=== PATIENT | female | born 1985 | race Caucasian/White ===

== ENCOUNTER 2024-11-17 14:21 | Emergency (ER) | payer OTHER, SELFPAY ==
[2024-11-17 14:57] VITALS: BP 150/90; PULSE 98; RESP 18; TEMP 36.6; O2SAT 97; BMI 17.9
--- NOTE | 2024-11-17 14:58 | ED_ITS ---
HPI - Psych General Chief Complaint: Anxiety Stated Complaint: Detox, anxiety Time Seen by Provider: 11/17/24 18:38 Source: patient Limitations: no limitations History of Present Illness ED Provider: Carmen Santana PA-C HPI Narrative: 39-year-old female with a history of polysubstance abuse presents to the ED requesting detox. Patient states she has been using more frequently secondary to increased life stressors involving a toxic relationship. Patient last use prior to arrival. She has been using heroin, cocaine and fentanyl. Patient denies use of alcohol, no SI or HI. Patient also complains of redness over some of the injection sites over her bilateral upper extremities. Denies fevers or active purulence from any of the sites. Related Data Previous Rx's ?Medication ?Instructions ?Recorded doxycycline hyclate 100 mg capsule 100 mg PO BID #14 caps 11/17/24 Allergies Allergy/AdvReac Type Severity Reaction Status Date / Time No Known Allergies Allergy Verified 11/17/24 15:02 Review of Systems 2 Review of Systems: Yes all other systems are reviewed and are negative Constitutional: Constitutional: Denies fatigue and Denies fever(s) Cardiovascular: Cardiovascular: Denies chest pain and Denies dyspnea Respiratory: Respiratory: Denies dyspnea Gastrointestinal: Gastrointestinal: Denies abdominal pain, Denies nausea and Denies vomiting Musculoskeletal: Musculoskeletal: Denies arthralgias and Denies joint swelling Integumentary/Breasts: Skin/Breast: Reports new lesions, Reports erythema, Reports sores and Reports wounds Endocrine: Endocrine: Denies fatigue PMFSH Past Medical History Attestation statement: The following information was validated with the patient. Social History Social History Advance Directives: No Advance Directives Information Provided: No Physical Exam 2 Vital Signs: Vital Signs: Last Vital Signs Temp 98.0 F 11/17/24 19:55 Pulse 85 11/17/24 19:55 Resp 16 11/17/24 19:55 BP 108/65 11/17/24 19:55 Pulse Ox 96 11/17/24 19:55 O2 Del Method Room Air 11/17/24 19:55 BMI result Body Mass Index 17.9 Const: Other: Awake, cachectic, appears older than stated age Orientation/consciousness: patient oriented x3 Resp: Effort & Inspection: normal respiratory effort Cardio: Other: Normal peripheral perfusion Skin: Other: Warm dry no rash overall. Patient has numerous track king over bilateral upper extremities, some regions scabbed over, some of the overlying erythema, none with the active purulent drainage or central fluctuance to suggest mini abscesses Neuro: General: patient oriented x3, gait normal, no focal motor deficits and CN's II-XI intact bilaterally Psych: Other: Cooperative, appears depressed is tearful Course Course Course Narrative: This is an RME: Additional HPI, ROS, PE not included below will be deferred to primary provider. RME assessment and note performed by: Cassandra Scott PA-C This is a [id number]-female, with a PMHx of endocarditis, CKD, and respiratory failure (hospitalized [facility] 2020), who presents to the ER with complaints of increased anxiety, and seeking detox. Reports that she is using fentanyl, heroin and cocaine daily. Last used this AM. Uses 3 bundles of heroin daily and using cocaine every 5 minutes . Denies etoh use. No SI/HI. Reporting some body aches. No CP or SOB. Bilateral biceps are indurated and warm Plan: Labs, addiction med, EKG Medications Administered Discontinued Medications Generic Name Dose Route Start Last Admin Trade Name Laureano PRN Reason Stop Dose Admin Doxycycline Monohydrate 100 mg 11/17/24 19:05 11/17/24 19:39 Doxycycline Monohydrate 100 Mg Capsule PO 11/17/24 19:06 100 mg ONCE ONE Administration Methadone HCl 130 mg 11/17/24 19:23 11/17/24 19:37 Methadone Hcl 20 Mg/2 Ml Oral.Conc PO 11/17/24 19:24 130 mg ONCE ONE Administration Medical Decision Making Medical Decision Making [facility] Narrative: 39-year-old female with a history of polysubstance abuse presents to the ED requesting detox. Patient states she has been using more frequently secondary to increased life stressors involving a toxic relationship. Patient last use prior to arrival. She has been using heroin, cocaine and fentanyl. Patient denies use of alcohol, no SI or HI. Patient also complains of redness over some of the injection sites over her bilateral upper extremities. Denies fevers or active purulence from any of the sites. Problem: Polysubstance abuse, IV drug abuse History: Per patient I have considered the following differential diagnoses: SI, HI, decompensated psychiatric illness, drug/alcohol intoxication Plan: The assistant women's rowing coach saw the patient, they have a bed for her in [place], we are able to discharge her. In regard to her upper extremities, we will treat her for early cellulitis. We will place her on doxycycline and send with a paper prescription. I have independently reviewed the following tests: Labs: No leukocytosis, not anemic, no electrolyte abnormality, inflammatory markers minimally elevated Lab Data 11/17/24 15:46 11/17/24 15:46 Labs: Lab Results 11/17/24 Range/Units 15:46 WBC 9.9 (4.8-10.8) X10*3/uL RBC 5.29 (4.20-5.50) X10*6/uL Hgb 11.9 L (12.0-16.0) g/dl Hct 38.0 (37.0-47.0) % MCV 71.8 L (80.0-98.0) fL MCH 22.5 L (27.0-33.0) pg MCHC 31.3 (31.0-35.0) g/dl RDW 16.9 H (11.0-16.0) % Plt Count 309 (160-400) X10*3/uL MPV 10.6 (9.4-12.3) fL Immature Gran % (Auto) 0.3 (0.0-0.4) % Neut % (Auto) 73.2 H (45-73) % Lymph % (Auto) 16.1 L (20-40) % Crosby % (Auto) 9.0 (2-11) % Eos % (Auto) 0.9 (0-4) % Baso % (Auto) 0.5 (0-2) % Lymph # (Auto) 1.6 (1.2-4.9) X10*3/uL Crosby # (Auto) 0.9 (0.1-1.2) X10*3/uL Eos # (Auto) 0.1 (0.0-0.4) X10*3/uL Baso # (Auto) 0.1 (0.0-0.2) X10*3/uL Abs Immat Gran (auto) 0.03 (0.00-0.03) X10*3/uL Absolute Neuts (auto) 7.2 (2.0-8.3) x10*3/uL Absolute Nucleated RBC 0.000 (0.0-0.012) X10*3/uL Nucleated RBC % (auto) 0.0 (0.0-0.2) /100WBC ESR 25 H (0-20) MM/HR Sodium 136 (135-145) mmol/L Potassium 4.0 (3.3-5.1) mmol/L Chloride 104 (96-108) mmol/L Carbon Dioxide 23 (22-29) mmol/L Anion Gap 13 (12-20) BUN 13 (9-16) mg/dL Creatinine 0.70 (0.5-1.4) mg/dL Estim Creat Clear Calc 95.5 Estimated GFR > 60 Random Glucose 89 (60-115) mg/dL Calcium 8.1 L (8.4-10.2) mg/dL Total Bilirubin 0.9 (0.0-1.0) mg/dL Direct Bilirubin 0.4 (0.0-0.5) mg/dL AST 33 H (5-31) U/L ALT 25 (0-31) U/L Alkaline Phosphatase 77 (39-117) U/L Troponin I High Sens < 2.7 (<3.5-17.0) ng/L C-Reactive Protein 4.21 H (< or = 0.50) mg/dL Total Protein 8.7 H (6.5-8.0) g/dL Albumin 4.0 (3.5-5.0) g/dL Beta HCG, Quant < 2 mIU/mL Discharge Plan Discharge Clinical Impression: Polysubstance abuse, Cellulitis Patient Disposition: Xfer Other Instructions: Cellulitis (ED) Additional Instructions: You are being treated for suspect early cellulitis at some of the injection sites. See home care instructions. Take the doxycycline as directed. You are being transported to a detox facility. Prescriptions: New doxycycline hyclate 100 mg capsule 100 mg PO BID Qty: 14 0RF Interventions: ED Discharge Assessment Last Done: 11/17/24 19:55 Discharge Date/Time: 11/17/24 19:57 Print Language: [place]
--- NOTE | 2024-11-17 15:04 | ECG_ITS ---
Test Reason : substance abuse Blood Pressure : */* mmHG Vent. Rate : 83 BPM Atrial Rate : 83 BPM P-R Int : 178 ms QRS Dur : 96 ms QT Int : 380 ms P-R-T Axes : 64 15 4 degrees QTcB Int : 446 ms Normal sinus rhythm Possible Left atrial enlargement Nonspecific ST and T wave abnormality Abnormal ECG No previous ECGs available Referred By: Cassandra Scott Electronically Signed By: BERNARDINO VANEGAS
[2024-11-17 15:53] LABS: MANUAL DIFF FLAG NO
[2024-11-17 15:56] LABS: Basophils Absolute Auto 0.1 X10*3/uL (0.0-0.2); Basophils Percent Auto 0.5 % (0-2); Eosinophils Absolute Auto 0.1 X10*3/uL (0.0-0.4); Eosinophils Percent Auto 0.9 % (0-4); Hemoglobin 11.9 g/dl (12.0-16.0); Imm Gran Abs Auto 0.03 X10*3/uL (0.00-0.03); Imm Gran Pct Auto 0.3 % (0.0-0.4); Lymphocytes Absolute Auto 1.6 X10*3/uL (1.2-4.9); Lymphocytes Percent Auto 16.1 % (20-40); Mean Corpuscular HGB Conc 31.3 g/dl (31.0-35.0); Mean Corpuscular Hemoglobin 22.5 pg (27.0-33.0); Mean Corpuscular Volume 71.8 fL (80.0-98.0); Mean Platelet Volume 10.6 fL (9.4-12.3); Monocytes Absolute Auto 0.9 X10*3/uL (0.1-1.2); Neutrophils Absolute Auto 7.2 x10*3/uL (2.0-8.3); Neutrophils Percent Auto 73.2 % (45-73); Platelet Count 309 X10*3/uL (160-400); Red Blood Count 5.29 X10*6/uL (4.20-5.50); Red Cell Distribution Width 16.9 % (11.0-16.0); White Blood Count 9.9 X10*3/uL (4.8-10.8)
[2024-11-17 16:08] LABS: Alanine Aminotransferase 25 U/L (0-31); Alkaline Phosphatase 77 U/L (39-117); Anion Gap 13 (12-20); Aspartate Amino Transferase 33 U/L (5-31); Bilirubin Direct 0.4 mg/dL (0.0-0.5); Bilirubin Total 0.9 mg/dL (0.0-1.0); Blood Urea Nitrogen 13 mg/dL (9-16); Calcium 8.1 mg/dL (8.4-10.2); Carbon Dioxide 23 mmol/L (22-29); Chloride 104 mmol/L (96-108); Creatinine Clr Calc Pharmacy 95.5; Estimated Glomerular Filt Rate > 60; Glucose Random 89 mg/dL (60-115); Sodium 136 mmol/L (135-145); Total Protein 8.7 g/dL (6.5-8.0)
[2024-11-17 16:11] LABS: C Reactive Protein 4.21 mg/dL (< or = 0.50)
[2024-11-17 16:15] LABS: HCG Quantitative < 2 mIU/mL; Troponin-I High Sensitivity < 2.7 ng/L (<3.5-17.0)
[2024-11-17 16:36] LABS: Erythrocyte Sedimentation Rate 25 MM/HR (0-20)
--- NOTE | 2024-11-17 16:48 | MHC.RECOVRN ---
Received referral for detox search for pt. Called [facility] and was able to have pt do intake over phone. Pt still in ED waiting room and will need EKG and medical clearance faxed to [phone] in order to be admitted. Pt will need to arrive prior to 9:30PM or she will need to go in AM between 8-10AM. ED provider ordered EKG and update given to care team (Leanna and Tree) to F/U once documentation complete and assist pt. with transport.
[2024-11-17 18:19] VITALS: BP 119/71; PULSE 96; RESP 20; TEMP 36.8; O2SAT 99
--- NOTE | 2024-11-17 18:43 | HE.PHANOTE ---
Methadone dose verified [facility] 130 mg daily
--- NOTE | 2024-11-17 18:49 | PC.NURSE ---
pt brought to ED17H from , pt changed over into hospital attire, belongings searched by security, placed in [employer] shelf #3. Pt sts she rec methadone-- from [facility] on [address] [phone] spoke with nurse Chris motley last dose 130mg at 0711 on 11/16/2024-- verification faxed to pharmacy
[2024-11-17 19:12] VITALS: BP 108/65; PULSE 85; RESP 16; TEMP 36.7; O2SAT 96
[2024-11-17] MEDS: methADONE HCl 20 MG/2 ML ORAL.CONC 130 MG PO (19:37)
[2024-11-17] MEDS: Doxycycline Monohydrate 100 MG CAPSULE PO (19:39)
[2024-11-17 19:55] VITALS: BP 108/65; PULSE 85; RESP 16; TEMP 36.7; O2SAT 96
== END 2024-11-17 19:57 | disposition other institution (70) ==
PROVIDERS: Physician Assistant Medical; Emergency Provider Emergency Medicine
DX: F19.10 Other psychoactive substance abuse, uncomplicated (principal); L03.114 Cellulitis of left upper limb; L03.113 Cellulitis of right upper limb; F41.9 Anxiety disorder, unspecified; Z72.89 Other problems related to lifestyle; Z63.0 Problems in relationship with spouse or partner; F11.20 Opioid dependence, uncomplicated
CPT/HCPCS: 36415; 80048; 80076; 84484; 84702; 85025; 85652; 86140; 87040; 93005; 99284

== ENCOUNTER → 2024-11-17 15:04 | Outpatient (BNV) | payer OTHER, SELFPAY | PROVIDERS: Emergency Provider Emergency Medicine; Visit Provider Internal Medicine | DX: F19.10 Other psychoactive substance abuse, uncomplicated (principal) | CPT/HCPCS: 93010 ==